=== PATIENT | female | born 1955 | race Caucasian/White ===

== ENCOUNTER 2018-10-07 13:13 | Emergency (ER) | payer BC ==
[2018-10-07 13:31] VITALS: BP 148/71
--- NOTE | 2018-10-07 13:40 | UC ---
General HPI - HPI Summary HPI Summary: Patient stated she twisted her right ankle on uneven ground while stepping off a bottom stair about four hours ago. Did fall. Denies any other injuries. No pain at rest. 6/10 pain with certain movements and weight bearing. Point tenderness to right lateral and proximal foot. Walking but with a mild limp. Minimal swelling. No ecchymosis. No obvious deformity. CMS intact. Patient tried ice and elevation with some improvement. Would like to rule out a fracture because she is going on vacation in two days. Patient is retired. PCP Tre Jacobson. [ End ] - History of Current Complaint Chief Complaint: UCLowerExtremity Stated Complaint: S/P FALL, RIGHT ANKLE INJURY Time Seen by Provider: 10/07/18 13:27 Hx Obtained From: Patient Onset/Duration: Sudden Onset Timing: Constant Pain Intensity: 0 Aggravating: walking Associated Signs & Symptoms: Positive: Edema. Negative: Fever - Allergy/Home Medications Allergies/Adverse Reactions: Allergies Allergy/AdvReac Type Severity Reaction Status Date / Time No Known Allergies Allergy Verified 10/07/18 13:26 Home Medications: Home Medications Krill Oil 500 mg PO DAILY 10/07/18 [History Confirmed 10/07/18] Vitamin THERAPEUTIC TAB* [Theragran TAB*] 1 tab PO DAILY 10/07/18 [History Confirmed 10/07/18] PMH/Surg Hx/FS Hx/Imm Hx Previously Healthy: Yes - Surgical History Surgical History: None - Family History Known Family History: Positive: Non-Contributory - Social History Alcohol Use: None Substance Use Type: None Smoking Status (MU): Never Smoked Tobacco Review of Systems All Other Systems Reviewed And Are Negative: No Constitutional: Negative: Fever Skin: Negative: Rash Musculoskeletal: Positive: Edema - R lateral foot with pain. Negative: Decreased ROM Neurological: Negative: Weakness, Paresthesia, Numbness Physical Exam Triage Information Reviewed: Yes Appearance: Well-Appearing Vital Signs: Initial Vital Signs Temp 98.2 F 10/07/18 13:23 Pulse 82 10/07/18 13:23 Resp 16 10/07/18 13:23 BP 148/71 10/07/18 13:23 Pulse Ox 100 10/07/18 13:23 Vital Signs Reviewed: Yes Cardiovascular: Positive: RRR Musculoskeletal: Positive: Other: - RLE: hip, knee and achilles without deformity or tenderness. R ankle without deformity or tenderness. Foot: mild lateral swelling and proximal 5th metatarsal tenderness. foot has gross s/v/m function. Neurological: Positive: Alert Psychological: Positive: Age Appropriate Behavior Skin Exam: Normal Skin: Negative: Rashes Diagnostics - Radiology No standard instances Radiology Interpretation Completed By: Radiologist - IMPRESSION: NO ACUTE OSSEOUS INJURY. IF SYMPTOMS PERSIST, RECOMMEND REPEAT IMAGING. Course/Dx - Differential Dx - Multi-Symptom Differential Diagnoses: Other - no fx's or dislocation on xray - Diagnoses Provider Diagnosis: Right foot sprain Discharge - Sign-Out/Discharge Documenting (check all that apply): Patient Departure All imaging exams completed and their final reports reviewed: Yes - Discharge Plan Condition: Stable Disposition: HOME Patient Education Materials: Foot Sprain (ED) Referrals: Ronald Romero MD [Medical Doctor] - 7 Days - Billing Disposition and Condition Condition: STABLE Disposition: Home
== END 2018-10-07 14:24 | disposition home or self-care (01) ==
LOC: UCCORT 13:13
DX: S93.601A Unspecified sprain of right foot, initial encounter (principal); W10.9XXA Fall (on) (from) unspecified stairs and steps, initial encounter; Y93.89 Activity, other specified; Y92.9 Unspecified place or not applicable
CPT/HCPCS: 99203; G0463